=== PATIENT | female | born 1975 | race Two or more races ===

== ENCOUNTER 2025-08-25 14:31 | Emergency (ER) | payer SELFPAY ==
[~2025-08-25] VITALS: Ht 157.5 cm; Wt 67.6 kg
[2025-08-25 14:59] VITALS: BP 132/81; TEMP 97.9; O2SAT 99
[2025-08-25] MEDS ORDERED: TELM80TA2 PO (15:05)
== END 2025-08-25 15:16 | disposition home or self-care (01) ==
LOC: ER 14:37
DX: Z76.0 Encounter for issue of repeat prescription (principal); I10 Essential (primary) hypertension; Z79.899 Other long term (current) drug therapy